=== PATIENT | female | born 1995 | race Caucasian/White ===

== ENCOUNTER 2017-05-13 18:38 | Observation (INO) | payer BC ==
[2017-05-13 19:29] VITALS: BP 113/70; PULSE 98
--- NOTE | 2017-05-14 08:42 | XRAY ---
Indication: Status post fall. Two-dimensional transabdominal OB ultrasound performed. Comparison: None There is a single viable intrauterine currently in breech presentation. Normal four-chamber heart with heart rate 138 BPM. Normal three-vessel cord and cord insertion. Placenta is posterior without abruption/previa. Cervical length measures 4.2 cm. BPD measures 6.05 cm corresponding to 24 weeks 4 days. HC measures 22.29 cm corresponding to 24 weeks 2 days. AC measures 19.24 cm corresponding to 24 weeks 0 days. FL measures 4.33 cm corresponding to 24 weeks 1 day. RAMIRO is 14.1 cm. Impression: Single viable intrauterine with mean gestational age 24 weeks 2 days. Expected date confinement is August 31, 2017. Nothing acute. Comment: Preliminary report was given.
== END 2017-05-13 23:37 | disposition home or self-care (01) ==
LOC: OB 18:38
PROVIDERS: ADMIT Family Medicine; ATTEND Family Medicine
DX: Z34.02 Encounter for supervision of normal first pregnancy, second trimester (principal)
CPT/HCPCS: 76805; 80307; G0378